=== PATIENT | female | born 1975 | race Caucasian/White ===

== ENCOUNTER → 2024-01-23 19:22 | Outpatient (REF) | payer OTHER, SELFPAY | LOC: WDC 19:22 | PROVIDERS: ATTENDING PHYSICIAN Surgery; FAMILY PHYSICIAN Internal Medicine | DX: Z12.31 Encounter for screening mammogram for malignant neoplasm of breast (principal); Z12.39 Encounter for other screening for malignant neoplasm of breast | CPT/HCPCS: 77063; 77067 ==

== ENCOUNTER 2024-07-10 17:09 | Emergency (ER) | payer OTHER, SELFPAY ==
[2024-07-10 17:28] VITALS: BP 132/92
--- NOTE | 2024-07-10 18:50 | ED.GENMED ---
History of Present Illness
<Estrellita Abrams PA-C - Last Filed: 07/11/24 00:03>
General
Chief Complaint: Abdominal Symptoms
Source: patient
Exam Limitations: none
Time Seen by Provider: 07/10/24 18:20
Nursing documentation reviewed up to this point in time: agreed with
History of Present Illness
History of Present Illness:
Patient is a 49-year-old female history of hypertension presenting to the emergency department for evaluation of persistent nausea, vomiting in setting of first semaglutide injection yesterday morning. Patient states that yesterday around 1030 she
had an appointment for her first injection of semaglutide. The injection was performed by one of the nurse practitioners at the [facility]. Patient states shortly after returning to her car following the appointment she was called stating she need to
come back into the office as they accidentally injected the maximum dose of semaglutide. They did caution patient that she would likely experience nausea and vomiting and they gave her a prescription for Zofran. Patient states that around 430PM
yesterday she began with severe nausea, vomiting and headache that has persisted through this today. Patient reports pain
Patient has been unable to keep down any liquids or food. Patient does deny any fever, chills, abdominal pain. No urinary symptoms.
Patient's last menstrual period was over 2 years ago.
Patient did have her gallbladder removed many years ago.
Review of Systems
<Estrellita Abrams PA-C - Last Filed: 07/11/24 00:03>
Review of Systems
Allergies reviewed?: Yes
All Other Systems: ROS reviewed and negative except as documented in HPI and ROS
Phy Exam
<Estrellita Abrams PA-C - Last Filed: 07/11/24 00:03>
Physical Exam
Physical Exam:
Vitals: Mildly tachycardic and hypertensive, otherwise vital signs stable. Afebrile
General: Patient is well appearing, no acute distress. Nontoxic in
Skin: Warm and dry, no rashes or lesions
Head: Normocephalic, atraumatic
Throat: Dry mucous membranes. Protecting airway
Neck: Normal ROM, no cervical spine tenderness, no meningismus
Cardiac: Regular rate and rhythm, no murmurs.
Pulm: In no apparent respiratory distress
Abdomen: Abdomen soft. No abdominal tenderness. No CVA tenderness
Extremities: No evidence of cyanosis or edema. Great distal pulses
Neuro: AAOx3. No focal neurologic deficits.
Psychiatric: Normal affect.
Course
<Estrellita Abrams PA-C - Last Filed: 07/11/24 00:03>
Orders/Labs/Results
Orders:
Orders
07/10/24 18:39
0.9% Sodium Chloride 1000 ml [Nss] 1,000 ml IV BOLUS
Acetaminophen 1000MG/100Ml [Ofirmev] 1,000 mg in 100 ml IV ONCE
Acetaminophen IV Indication:: ED Narcotic Naive Pt-ONCE
Ondansetron Injectable [Zofran] 4 mg IV NOW STA
07/10/24 18:56
Complete Blood Count/With Diff Urgent
Comprehensive Metabolic Panel Urgent
Lipase Urgent
Abnormal Lab Results
07/10/24
18:56
WBC 12.7 H 10^3/uL
(4.8-10.8)
MCH 32.1 H pg
(27.0-31.0)
Absolute Neuts (auto) 10.1 H 10^3/uL
(1.4-6.5)
Absolute Monos (auto) 1.0 H 10^3/uL
(0.1-0.6)
Neutrophils % 79.5 H %
(42.2-75.2)
Lymphocytes % 11.8 L %
(20.5-51.1)
Chloride 90 L mmol/L
(98-107)
Carbon Dioxide 32 H mmol/L
(22-30)
BUN 25 H mg/dl
(7-17)
Calcium 10.6 H mg/dl
(8.4-10.2)
AST 38 H U/L
(14-36)
Total Protein 8.6 H g/dl
(6.3-8.2)
Albumin 5.4 H g/dl
(3.5-5.0)
07/10/24 18:56
07/10/24 18:56
Vital Signs
Initial and Last Documented VS:
Initial Vital Signs
Temp Pulse Resp BP Pulse Ox
98.2 F 110 16 132/92 98
07/10/24 17:28 07/10/24 17:28 07/10/24 17:28 07/10/24 17:28 07/10/24 17:28
Last Documented Vital Signs
Temp Pulse Resp BP Pulse Ox
98.2 F 81 17 110/72 98
07/10/24 17:28 07/10/24 21:08 07/10/24 21:08 07/10/24 21:08 07/10/24 21:08
<Phuc Moore DO - Last Filed: 07/11/24 03:12>
Orders/Labs/Results
Orders:
Orders
07/10/24 18:39
0.9% Sodium Chloride 1000 ml [Nss] 1,000 ml IV BOLUS
Acetaminophen 1000MG/100Ml [Ofirmev] 1,000 mg in 100 ml IV ONCE
Acetaminophen IV Indication:: ED Narcotic Naive Pt-ONCE
Ondansetron Injectable [Zofran] 4 mg IV NOW STA
07/10/24 18:56
Complete Blood Count/With Diff Urgent
Comprehensive Metabolic Panel Urgent
Lipase Urgent
Abnormal Lab Results
07/10/24
18:56
WBC 12.7 H 10^3/uL
(4.8-10.8)
MCH 32.1 H pg
(27.0-31.0)
Absolute Neuts (auto) 10.1 H 10^3/uL
(1.4-6.5)
Absolute Monos (auto) 1.0 H 10^3/uL
(0.1-0.6)
Neutrophils % 79.5 H %
(42.2-75.2)
Lymphocytes % 11.8 L %
(20.5-51.1)
Chloride 90 L mmol/L
(98-107)
Carbon Dioxide 32 H mmol/L
(22-30)
BUN 25 H mg/dl
(7-17)
Calcium 10.6 H mg/dl
(8.4-10.2)
AST 38 H U/L
(14-36)
Total Protein 8.6 H g/dl
(6.3-8.2)
Albumin 5.4 H g/dl
(3.5-5.0)
07/10/24 18:56
07/10/24 18:56
Vital Signs
Initial and Last Documented VS:
Initial Vital Signs
Temp Pulse Resp BP Pulse Ox
98.2 F 110 16 132/92 98
07/10/24 17:28 07/10/24 17:28 07/10/24 17:28 07/10/24 17:28 07/10/24 17:28
Last Documented Vital Signs
Temp Pulse Resp BP Pulse Ox
98.2 F 81 17 110/72 98
07/10/24 17:28 07/10/24 21:08 07/10/24 21:08 07/10/24 21:08 07/10/24 21:08
<Estrellita Abrams PA-C - Last Filed: 07/11/24 00:03>
MDM/Problems Addressed
Differential Diagnosis Includes:
Not limited to: Medication side effect, dehydration, viral gastritis, electrolyte derangements, pancreatitis, cholecystitis
MDM/Problems Addressed:
49-year-old female presenting with persistent nausea, vomiting, headache following incorrect dosage of injected semaglutide yesterday. Patient denies fevers or abdominal pain. Unable to tolerate p.o. liquids/food intake since yesterday. Patient
tachycardic on arrival to emergency department although normalized following IV fluids. Otherwise her vital signs are stable. Patient is afebrile. Physical exam as above. Patient is nontoxic-appearing she does have somewhat dry mucous membranes.
Abdomen is soft and nontender with no focal tenderness. No CVA tenderness. No focal neurologic deficits. Given ongoing nausea/vomiting�will check basic labs, will give patient IV fluids, IV Zosyn. Will give IV Offirmev to treat headache as
patient allergic to NSAIDs and unable to tolerate p.o. intake.
Chronic conditions affecting care:
Hypertension
Acute Exacerbation and/or Progression of Chronic Illness:
Acutely hypertensive
<Estrellita Abrams PA-C - Last Filed: 07/11/24 00:03>
*Pulse Oximetry
Patient hypoxic: no
*EKG
Interpreted by ED Provider?: NA
*Decision Unit Rn Interpretation
Rate: Decision Unit Rn- N/A
*Critical Care Note
Total Time (30-74mins, 75-104mins- exclusive of procedures): Not Applicable
<Estrellita Abrams PA-C - Last Filed: 07/11/24 00:03>
Update Note
Update Note:
Update: Labs reviewed. Leukocytosis of 12.7�likely reactive from vomiting. Evidence of mild dehydration on chemistry panel. Appears to have a nongap mild acidosis likely secondary to GI losses. Lipase is normal. Patient reports headache
essentially resolved following IV Offirmev. Patient has had no episodes of vomiting since my initial evaluation. Will give have patient drink p.o. liquid to see if able to tolerate.
Update: Patient was able to tolerate entire glass of water without any repeat episodes of vomiting. Headache resolved. Suspect symptoms likely secondary to semaglutide dosage. Very low suspicion for acute infectious process given patient is
afebrile with benign abdominal exam. No indication for abdominal imaging at this time.
Stable for discharge given patient has been without any vomiting episodes and is tolerating p.o. liquids. Advised to avoid any further semaglutide injections till cleared by primary care doctor. Will send Zofran for patient at home. Advised to
stay well-hydrated, monitor symptoms closely. Return precautions discussed at length including fevers, signs of infection, or signs of severe dehydration. Patient seen with attending physician.
ED Attending Note
<Estrellita Abrams PA-C - Last Filed: 07/11/24 00:03>
-
Portions of this chart may have been created with voice recognition software.� Occasional wrong word or��sound alike� substitutions may have occurred due to the inherent limitations of voice recognition software.
<Phuc Moore DO - Last Filed: 07/11/24 03:12>
ED Attending Note
Patient seen and examined by attending physician: Yes
I performed the substantive portion of visit, reviewed & personally made and approve the management plan that is documented in note by myself or SAIDA.: Yes
ED Attending Note:
49-year-old female who presents after she got too high of a dose of semaglutide for the first time. Patient my evaluation feels improved. Vital signs stable. Okay for outpatient management and symptom control
Discharge Plan
Departure
Patient Disposition: Home (Routine Discharge)
Date of Disposition: 07/10/24
Time of Disposition: 21:52
Patient with high blood pressure during this ER visit?: No
Condition: Good
Covid-19: Not Applicable
Discharge Problem:
Nausea & vomiting, Headache
Instructions: Dehydration, Adult (DC), Nausea and Vomiting, Adult (DC)
Prescriptions:
New
ondansetron 4 mg tablet,disintegrating
4 mg PO Q8H PRN (Reason: nausea and vomiting) Qty: 10 0RF
No Action
sennosides [senna] 1 TABLET tablet
4 tab PO BID
acetaminophen [Tylenol Extra Strength] 500 MG tablet
500 mg PO Q6HPRN PRN (Reason: pain)
magnesium citrate 100 MG tablet
500 mg PO DAILY
Vitamin D
1 tab PO DAILYPRN PRN (Reason: sun)
Referrals:
Amauri Goldstein MD [Family Provider] - Follow up in 2-3 days
Activity Restrictions/Additional Instructions:
Return to the emergency department with any fevers, chills, severe abdominal pain, intractable nausea/vomiting, inability to produce urine or other signs of severe dehydration, severe headache, worsening current symptoms, or any other concerns
-You can take Zofran every 8 hours as needed for persistent nausea/vomiting. You should use Tylenol as needed for headache. It is very important to stay well-hydrated.
-You should refrain from any further semaglutide injections to you are cleared by your doctor.
-Follow-up with primary care in a few days to ensure the symptoms are improving.
Monitor your symptoms closely and return to the emergency department with any acute worsening/new symptoms or any signs of severe dehydration.
Interventions
Interventions:
*Risk Screen - Suicide Last Done: 07/10/24 19:01
*General Assessment Last Done: 07/10/24 19:01
*Neglect/Abuse Screening Last Done: 07/10/24 19:01
ED- Fall Risk Assessment Last Done: 07/10/24 19:01
*Nursing Disposition Last Done: 07/10/24 22:28
BI-Nkewjy-Mpudieneld Assessment Last Done: 07/10/24 19:00
Discharge Date and Time
Discharge Date/Time: 07/10/24 22:28
Print Language: SWEDISH
[2024-07-10] MEDS: OFIRMEV 100 IV (18:55)
[2024-07-10] MEDS: NSS 1000 IV (18:55)
[2024-07-10] MEDS: ZOFRAN 4 MG IV (18:56)
[2024-07-10 19:00] VITALS: BP 133/90
[2024-07-10 19:03] LABS: % Basophils 0.3 % (0-2); % Eosinophils 0.4 % (0-6); % Immature Granulocytes 0.2 % (0-0.5); % Lymphocytes 11.8 % (20.5-51.1); % Monocytes 7.8 % (1.7-9.3); % Neutrophils 79.5 % (42.2-75.2); Absolute Eosinophils 0.1 10^3/uL (0-0.7); Absolute Lymphocytes 1.5 10^3/uL (1.2-3.4); Absolute Neutrophils 10.1 10^3/uL (1.4-6.5); Hematocrit 41.7 % (37.0-47.0); Mean Corpuscular Hgb 32.1 pg (27.0-31.0); Mean Corpuscular Volume 89.3 fL (81.0-99.0); Mean Platelet Volume 10.2 fL (7.4-10.4); Nucleated Red Blood Cells % 0 %; Platelet Count 321 10^3/uL (130-400); Red Blood Cell Count 4.67 10^6/uL (4.20-5.40); Red Cell Dist. Width 12.1 % (11.5-14.5); White Blood Cell Count 12.7 10^3/uL (4.8-10.8)
[2024-07-10 19:32] LABS: ALT (SGPT) 32 U/L (0-35); AST (SGOT) 38 U/L (14-36); Albumin 5.4 g/dl (3.5-5.0); Alkaline Phosphatase 90 U/L (38-126); Blood Urea Nitrogen 25 mg/dl (7-17); Calcium 10.6 mg/dl (8.4-10.2); Carbon Dioxide 32 mmol/L (22-30); Chloride 90 mmol/L (98-107); Glucose 84 mg/dl (70-99); Lipase 48 U/L (23-300); Potassium 3.9 mmol/L (3.5-5.1); Sodium 137 mmol/L (135-145); Total Bilirubin 0.8 mg/dl (0.2-1.3); Total Protein 8.6 g/dl (6.3-8.2); eGFR > 60.00
[2024-07-10 21:08] VITALS: BP 110/72
== END 2024-07-10 22:28 | disposition home or self-care (01) ==
LOC: EMR 17:09
PROVIDERS: Physician Assistant; EMERGENCY PHYSICIAN Emergency Medicine; FAMILY PHYSICIAN Internal Medicine
DX: R11.2 Nausea with vomiting, unspecified (principal); R51.9 Headache, unspecified; I10 Essential (primary) hypertension; Z88.6 Allergy status to analgesic agent; Z90.49 Acquired absence of other specified parts of digestive tract
CPT/HCPCS: 99284; 96374; 96375; 96361; 80053; 83690; 85025

== ENCOUNTER → 2024-07-25 15:29 | Outpatient (REF) | payer OTHER, SELFPAY | LOC: MRI 3T 15:29 | PROVIDERS: ATTENDING PHYSICIAN Surgery; FAMILY PHYSICIAN Internal Medicine | DX: Z91.89 Other specified personal risk factors, not elsewhere classified (principal); R92.30 Dense breasts, unspecified | CPT/HCPCS: 77049; A9585 ==

== ENCOUNTER → 2025-02-13 16:10 | Outpatient (REF) | payer OTHER, SELFPAY | LOC: WDC 16:10 | PROVIDERS: ATTENDING PHYSICIAN Surgery; FAMILY PHYSICIAN Physician Assistant | DX: Z12.31 Encounter for screening mammogram for malignant neoplasm of breast (principal) | CPT/HCPCS: 77063; 77067 ==

== ENCOUNTER 2025-07-10 06:18 | Day surgery (SDC) | payer OTHER, SELFPAY | END 2025-07-10 08:43 | disposition home or self-care (01) | LOC: GI 06:18 | PROVIDERS: ATTENDING PHYSICIAN Internal Medicine Gastroenterology; FAMILY PHYSICIAN Physician Assistant | DX: Z12.11 Encounter for screening for malignant neoplasm of colon (principal); K64.9 Unspecified hemorrhoids; Z86.0100 Personal history of colon polyps, unspecified | CPT/HCPCS: G0105 ==